=== PATIENT | male | born 1980 | race Caucasian/White ===

== ENCOUNTER 2021-04-26 18:29 | Emergency (ER) | payer OTHER, BC ==
[2021-04-26] MEDS ORDERED: Lidocaine 1% with EPINEPHrine 1:100,000 50 ML MDV INFILT STA (18:57)
[2021-04-26] MEDS ORDERED: Bacitracin Oint 1 GM U/D Packet TOP ONE (18:57)
[2021-04-26] MEDS ORDERED: Diphtheria,Pertussis(Acell),Tetanus Vaccine 0.5 ML Syringe IM ONE (20:21)
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
== END 2021-04-26 20:37 | disposition home or self-care (01) ==
LOC: JP.ED 18:29
DX: S01.112A Laceration without foreign body of left eyelid and periocular area, initial encounter (principal); Z23 Encounter for immunization; Z88.1 Allergy status to other antibiotic agents; Z86.16 Personal history of COVID-19; V94.89XA Other water transport accident, initial encounter
CPT/HCPCS: 12013; 90471; 90715; 99282-25